=== PATIENT | male | born 2000 | race African-American/Black ===

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

== ENCOUNTER 2022-06-06 18:10 | Emergency (ER) | payer OTHER ==
[~2022-06-06] VITALS: Ht 167.6 cm; Wt 75.3 kg
[~2022-06-06 18:10] MED LIST: ACET-907 PO; BUPR150T12 PO; NICO21PAT TD; TRAZ-252 PO
[2022-06-06] MEDS ORDERED: MIDAZOLAM INJ 2MG/2ML VIAL (J2250 PER 1MG) IM ONE (18:15)
[2022-06-06] MEDS ORDERED: OLANZapine INTRAMUSCULAR 10MG VIAL IM ONE (18:15)
[2022-06-06] MEDS ORDERED: MIDAZOLAM INJ 2MG/2ML VIAL (J2250 PER 1MG) As Ordered ONE (18:16)
[2022-06-06] MEDS ORDERED: MIDAZOLAM INJ 2MG/2ML VIAL (J2250 PER 1MG) IV STA ×2 (18:19→18:25)
[2022-06-06 18:58] LABS: HEMATOCRIT 44.8 % (42.0-52.0); HEMOGLOBIN 15.3 g/dl (13.5-17.5); MEAN CORPUSCULAR HEMOGLOBIN 29.2 pg (27.0-33.0); MEAN CORPUSCULAR HGB CONC 34.2 g/dl (32.0-36.5); MEAN CORPUSCULAR VOLUME 85.5 fl (80.0-96.0); PLATELET COUNT, AUTOMATED 308 10^3/uL (150-450); RED BLOOD COUNT 5.24 10^6/uL (4.30-6.10); WHITE BLOOD COUNT 10.8 10^3/uL (4.0-10.0)
[2022-06-06] MEDS ORDERED: LIDOCAINE 2% 5ML JELLY UROJET TOP ONE (19:10)
[2022-06-06 19:29] LABS: ACETAMINOPHEN LEVEL < 2.0 UG/ML (10.0-30.0); ALBUMIN 4.6 GM/DL (3.2-5.2); ALT/SGPT 37 U/L (12-78); BILIRUBIN,DIRECT 0.2 MG/DL (0.0-0.2); BILIRUBIN,TOTAL 0.6 MG/DL (0.2-1.0); BLOOD UREA NITROGEN 21 MG/DL (7-18); CALCIUM LEVEL 10.3 MG/DL (8.5-10.1); CARBON DIOXIDE LEVEL 22 MEQ/L (21-32); CHLORIDE LEVEL 102 MEQ/L (98-107); CREATININE FOR GFR 1.58 MG/DL (0.70-1.30); ETHYL ALCOHOL (ETHANOL) 0.008 % (0.000-0.010); GLUCOSE, FASTING 87 MG/DL (70-100); POTASSIUM SERUM 4.5 MEQ/L (3.5-5.1); SALICYLATE LEVEL < 1.7 MG/DL (5.0-30.0); SODIUM LEVEL 136 MEQ/L (136-145); THYROID STIMULATING HORMONE 0.963 uIU/ML (0.463-3.98); TOTAL PROTEIN 8.6 GM/DL (6.4-8.2)
[2022-06-06 19:45] LABS: RSV AMPLIFICATION NEGATIVE (NEGATIVE)
[2022-06-06 20:15] LABS: AMPHETAMINES LEVEL URINE NEGATIVE (NEGATIVE); BARBITURATES URINE NEGATIVE (NEGATIVE); BENZODIAZEPINES URINE POSITIVE (NEGATIVE); CANNABINOIDS URINE POSITIVE (NEGATIVE); COCAINE METABOLITE URINE NEGATIVE (NEGATIVE); METHADONE URINE NEGATIVE (NEGATIVE); OPIATES URINE NEGATIVE (NEGATIVE); PHENCYCLIDINE URINE NEGATIVE (NEGATIVE)
[2022-06-07] MEDS ORDERED: NS 1,000 ML IV ONE ×2 (02:05)
[2022-06-07] MEDS ORDERED: HOME MED LIST COMPLETE! XX SCH (03:50)
[2022-06-07 05:25] LABS: BLOOD UREA NITROGEN 18 MG/DL (7-18); CALCIUM LEVEL 8.6 MG/DL (8.5-10.1); CARBON DIOXIDE LEVEL 23 MEQ/L (21-32); CHLORIDE LEVEL 106 MEQ/L (98-107); CREATININE FOR GFR 1.25 MG/DL (0.70-1.30); GLUCOSE, FASTING 81 MG/DL (70-100); POTASSIUM SERUM 3.7 MEQ/L (3.5-5.1); SODIUM LEVEL 137 MEQ/L (136-145)
[2022-06-07 06:00] VITALS: BP 146/72
[2022-06-07] MEDS ORDERED: ALPRAZolam 0.5 MG TAB PO ONE (06:10)
== END 2022-06-07 06:40 | disposition home or self-care (01) ==
LOC: M ED 18:10
DX: F43.20 Adjustment disorder, unspecified (principal); F15.10 Other stimulant abuse, uncomplicated; E86.0 Dehydration; N17.9 Acute kidney failure, unspecified
CPT/HCPCS: 51701; 80048; 80076; 80143; 80307; 82077; 84443; 85027; 87631; 96361; 96372; 96374; 99285; J2250